=== PATIENT | female | born 1965 | race Asian ===

== ENCOUNTER → 2022-12-22 | Outpatient (CLI) | payer OTHER ==
[2022-12-23 07:07] LABS: MUMPS VIRUS IGG ANTIBODY >300.0 AU/mL (Immune >10.9); RUBELLA AB IGG-REFLAB 6.08 index (Immune >0.99); RUBEOLA (MEASLES) IGG >300.0 AU/mL (Immune >16.4); VARICELLA ZOSTER IGG AB TITER 454 index (Immune >165)
== END | disposition home or self-care (01) ==
LOC: LABMN 14:58
PROVIDERS: ATTEND Internal Medicine
DX: Z02.1 Encounter for pre-employment examination (principal)
CPT/HCPCS: 86706; 86735; 86762; 86765; 86787